=== PATIENT | male | born 2000 | race Caucasian/White ===

== ENCOUNTER → 2019-04-01 | Outpatient (CLI) | payer OTHER | END | disposition home or self-care (01) | LOC: LAB 10:00 → LAB SHORT 10:00 | DX: J02.9 Acute pharyngitis, unspecified (principal) | CPT/HCPCS: 87081 ==

== ENCOUNTER 2024-10-03 04:01 | Emergency (ER) | payer OTHER ==
[~2024-10-03] VITALS: Ht 180.3 cm; Wt 112.0 kg
[2024-10-03 04:14] VITALS: BP 132/88
== END 2024-10-03 05:55 | disposition home or self-care (01) ==
LOC: ER 04:01
DX: S00.83XA Contusion of other part of head, initial encounter (principal); Y04.8XXA Assault by other bodily force, initial encounter
CPT/HCPCS: 70450; 73130; 99284-25

== ENCOUNTER → 2025-01-17 | Outpatient (CLI) | payer OTHER ==
[2025-01-20 08:08] LABS: HIV 1,2 COMBO ANTIGEN/ANTIBODY Negative (Negative)
[2025-01-20 09:29] LABS: HEPATITIS C AB CIA INTERP Negative (Negative); HEPATITIS C ANTIBODY CIA INDEX <0.02 IV
[2025-01-21 19:58] LABS: APTIMA MEDIA TYPE Urine; C. TRACHOMATIS BY TMA Negative (Negative); N. GONORRHOEAE BY TMA Negative (Negative); T. VAGINALIS BY TMA Negative (Negative)
== END ==
LOC: LAB SHORT 17:10 → LAB 17:10
PROVIDERS: Student in an Organized Health Care Education/Training Program
DX: Z11.3 Encounter for screening for infections with a predominantly sexual mode of transmission (principal)
CPT/HCPCS: 86803; 87389; 87491; 87591; 87661

== ENCOUNTER → 2025-01-18 | Outpatient (CLI) | payer OTHER ==
[2025-01-18 19:08] LABS: Chlamydia Trachomatis Urine NOT DETECTED (NOT DETECT); Neisseria Gonorrhoea Urine NOT DETECTED (NOT DETECT)
== END ==
LOC: LAB 12:16 → LAB SHORT 12:16
PROVIDERS: Family Medicine
DX: N48.9 Disorder of penis, unspecified (principal)
CPT/HCPCS: 86592; 87491; 87591

== ENCOUNTER 2025-01-30 11:11 | Emergency (ER) | payer OTHER ==
[~2025-01-30] VITALS: Ht 182.9 cm; Wt 99.8 kg
[2025-01-30 11:34] VITALS: BP 149/94
[2025-01-30] MEDS ORDERED: QUET25 PO (11:47)
== END 2025-01-30 11:51 | disposition home or self-care (01) ==
LOC: ER 11:11
DX: G47.00 Insomnia, unspecified (principal)
CPT/HCPCS: 99282

== ENCOUNTER 2025-03-20 18:57 | Observation (INO) | payer OTHER ==
[~2025-03-20] VITALS: Ht 185.4 cm; Wt 101.6 kg
[~2025-03-20 18:57] MED LIST: QUET25 PO
[2025-03-20 19:53] LABS: BASOPHILS ABSOLUTE AUTO 0.06 K/mm3 (0.00-0.23); BASOPHILS PERCENT AUTO 0 % (0-2); EOSINOPHILS ABSOLUTE AUTO 0.18 K/mm3 (0.00-0.68); EOSINOPHILS PERCENT AUTO 1 % (0-6); Hematocrit 43.3 % (37.0-53.0); Hemoglobin 14.7 g/dL (13.5-17.5); IMMATURE GRAN ABSOLUTE AUTO 0.06 K/mm3 (0.00-0.10); IMMATURE GRAN PERCENT AUTO 0 % (0-1); LYMPHOCYTES ABSOLUTE AUTO 2.67 K/mm3 (0.84-5.20); LYMPHOCYTES PERCENT AUTO 19 % (21-46); MONOCYTES ABSOLUTE AUTO 1.06 K/mm3 (0.16-1.47); MONOCYTES PERCENT AUTO 8 % (4-13); Mean Corpuscular HGB Conc 33.9 g/dL (31.5-36.5); Mean Corpuscular Volume 86 fL (80-100); NEUTROPHILS ABSOLUTE AUTO 9.96 K/mm3 (1.96-9.15); NEUTROPHILS PERCENT AUTO 71 % (41-73); NRBC ABSOLUTE 0.00 K/mm3 (0.00-0.02); NRBC Auto 0.0 /100 WBC (0.0-0.2); Platelet Count 327 K/mm3 (150-400); RDW Coefficient Variation 12.8 % (11.7-14.2); RDW Standard Deviation 40.4 fL (35.1-46.3)
[2025-03-20 20:18] LABS: Ethanol (Alcohol), Blood, Med <3 mg/dL; Salicylate <1.7 mg/dL (2.8-20.0)
[2025-03-20 20:20] LABS: Alanine Aminotransfer (ALT/SGP 74 U/L (12-78); Albumin, Blood 3.7 g/dL (3.4-5.0); Albumin/Globulin Ratio 0.8 (0.8-1.8); Anion Gap 8 mmol/L (3-11); Aspartate Aminotrans (AST/SGOT 31 U/L (12-37); Bilirubin, Total 0.3 mg/dL (0.1-1.0); Blood Urea Nitrogen 22 mg/dL (8-24); CO2, Blood 27 mmol/L (21-32); Calcium, Blood 9.4 mg/dL (8.5-10.1); Chloride, Blood 104 mmol/L (98-108); Creatinine, Blood 0.80 mg/dL (0.60-1.20); Globulin, Blood 4.5 g/dL (2.2-4.0); Glucose, Blood 113 mg/dL (70-99); Potassium, Blood 3.9 mmol/L (3.5-5.5); Sodium, Blood 135 mmol/L (136-145); Total Protein, Blood 8.2 g/dL (6.4-8.2)
[2025-03-20 20:23] LABS: Acetaminophen, Random <2.0 ug/mL (10.0-30.0)
[2025-03-20 20:41] LABS: Source, Urine Clean Catch
[2025-03-20 20:44] LABS: Bilirubin, Urine Neg (Neg); Color, Urine Yellow (P-Yellow); Glucose Qualitative, Urine Neg (Neg); Ketones, Urine Neg (Neg); Leukocyte Esterase, Urine Neg (Neg); Protein, Urine Neg (Neg); Specific Gravity, Urine 1.015 (1.003-1.022); Urobilinogen, Urine NORM (Normal)
[2025-03-20 20:56] LABS: U Amphetamine Screen Not Detected; U Barbiturate Screen Not Detected; U Benzodiazapine Screen Not Detected; U Buprenorphine Screen Not Detected; U Cannabinoids Screen Not Detected; U Cocaine Screen Not Detected; U Methadone Screen Not Detected; U Methamphetamine Screen Not Detected; U Opiates Screen Not Detected; U Oxycodone Screen Not Detected; U Phencyclidine Screen Not Detected
[2025-03-21] MEDS ORDERED: DEXTROMETHORPHAN/BENZOCAINE 1 EACH LOZENGE MT ONE (04:45)
[2025-03-21 09:39] VITALS: BP 133/80
[2025-03-21] MEDS ORDERED: BUSPIRONE HCL5 M6 PO (09:44)
[2025-03-21] MEDS ORDERED: Hydroxyzine HCl25 MG PO (09:45)
[2025-03-21] MEDS ORDERED: SERT100 PO (20:30)
== END 2025-03-21 16:13 | disposition other institution (70) ==
LOC: ER 18:57 → EOR 18:58 → EDBEDREQSVC 03-21 10:55 → EDBEDREQ 03-21 10:55 → EOR 03-21 16:13
PROVIDERS: Student in an Organized Health Care Education/Training Program; ADMIT Emergency Medicine
DX: T14.91XA Suicide attempt, initial encounter (principal); X83.8XXA Intentional self-harm by other specified means, initial encounter; G47.00 Insomnia, unspecified; Z59.89 Other problems related to housing and economic circumstances
CPT/HCPCS: 36415; 80053; 80320; 81003; 85025; 99285; A9270; G0378; G0480

== ENCOUNTER 2025-03-21 10:39 | Inpatient (IN) | payer OTHER ==
[~2025-03-21] VITALS: Ht 185.4 cm; Wt 99.8 kg
[~2025-03-21 10:39] MED LIST changes: +BUSPIRONE HCL5 M6 PO; +Hydroxyzine HCl25 MG PO
[2025-03-21] MEDS ORDERED: Ondansetron 4 MG SoluTab MM PRN (12:20)
[2025-03-21] MEDS ORDERED: Polyethylene Glycol 3350 17 gm PO PRN (12:20)
[2025-03-21] MEDS ORDERED: Haloperidol Lactate Inj. 5 MG/ML Injection IM PRN (12:25)
[2025-03-21] MEDS ORDERED: LORazepam 2 MG/ML 1ML Injection IM PRN (12:25)
[2025-03-21] MEDS ORDERED: FLU VACC TS2025-26(6MOS UP)/PF 45 MCG/0.5 ML SYRINGE IM SCH (12:25)
[2025-03-21] MEDS ORDERED: Aluminum Hydroxide 320MG/5ML 473 ML PO PRN (12:30)
[2025-03-21] MEDS ORDERED: DiphenhydrAMINE HCl 50 MG/ML 1ML Vial IM PRN (12:30)
[2025-03-21 16:32] VITALS: BP 150/94
--- NOTE | 2025-03-21 17:50 | NUR ---
PT ARRIVED ON THE UNIT FROM [facility] ED @151. HE WAS ESCORTED BY EMILIE A AND SECURITY. TWO RN SKIN AND LICE CHECK COMPLETED BY THIS RN AND CHRIS Veras RN. NO ISSUES NOTED. PT ORIENTATED TO THE UNIT. INTAKE WILL BE COMPLETED BY NOC STAFF
[2025-03-21 20:04] VITALS: BP 150/94
[2025-03-21] MEDS ORDERED: SERT100 PO (20:30)
[2025-03-21 20:51] VITALS: BP 134/78
--- NOTE | 2025-03-21 21:15 | NUR ---
ADMISSION NOTE: PATIENT ARRIVED ON [facility] AT 1518, SKIN CHECK DONE BY DAY SHIFT RNS. ADMIT DONE ON THIS SHIFT. PATIENT IS A PLEASANT 24 YEAR OLD MALE WITH AN NAURUAN ACCENT, HE WAS BORN IN [place] AND RECENTLY MOVED HERE. HE STATES THAT HE IS "DEPRESSED" SECONDARY TO "CHRONIC INSOMNIA". HE USED TO SLEEP 7-8 HOURS A NIGHT, UNINTERRUPTED, HE STATES, BUT NOW HE SLEEPS "ABOUT TWO HOURS, THEN AWAKE, THEN MAYBE ANOTHER TWO". HE STATES THAT HE NEVER DREAMS AND IS SO EXHAUSTED "THAT I'M IN PAIN ALL THE TIME. THAT'S WHY I TRIED TO HANG MYSELF." HE STATES THAT WHEN HE TRIED TO HANG HIMSELF, "I MEANT TO . I WROTE A SUICIDE NOTE AND THOUGHT IT WAS THE END." HE STATES THAT HE STILL FEELS SUICIDAL BUT THAT HE FEELS "SAFE HERE AND I WON'T DO ANYTHING HERE". HE STATES THAT IF HE DOES NOT START TO GET SOME GOOD SLEEP, HE WILL TRY AGAIN ONCE HE LEAVES HERE "BECAUSE THE PAIN AND EXHAUSTION ARE TOO MUCH". PATIENT WOULD LIKE A FLU SHOT WHILE HE IS HERE. HE WOULD ALSO LIKE THYROID LABS DONE, HE FEELS HIS "HEART RACES" AND HE MIGHT BE HAVING ISSUES. HE STATES, "I'M TERRIFIED OF HAVING A STROKE. I FEEL LIKE THE RACING HEART MIGHT LEAD TO ONE." DR ORDERED THYROID PANEL FOR THE MORNING LABS. PATIENT STATES HE CAN BE SELF HARMING, AND DOES SO BY "HITTING MYSELF WITH CLOSED FISTS". HE STATES THAT HE SOMETIMES GETS ANGRY, "BUT I'VE NEVER HURT ANOTHER PERSON, JUST MYSELF". HE WILL TELL STAFF IF HE FEELS LIKE SELF HARMING WHILE HERE. HE HAD HIS APPENDIX REMOVED WHEN HE WAS YOUNGER, IN [place]. HE DOES NOT REMEMBER THE YEAR. HE IS CONNECTED WITH [employer] AND SEES "[facility]" ALTHOUGH HE MISSED A MARCH 11 APPOINTMENT. HIS PCP IS DR REHANA STOVALL. HE STATES THAT HE HAS GOOD FAMILY SUPPORT WITH HIS MOM AND STEPDAD. HE HAS A GOOD NETWORK OF FRIENDS, AND A SUPPORTIVE GIRLFRIEND. IN ONE YEAR, HE SEES HIMSELF "NOT ALIVE". HE STATES, "THAT COULD CHANGE IF THE PAIN AND EXHAUSTION STOP" BUT HE DOESN'T KNOW HOW THAT IS POSSIBLE. HE STATES THAT THE DEPRESSION/EXHAUSTION/PAIN HAVE BEEN SO SEVERE THAT HE HAS NOT ATTENDED TO BASIC NEEDS, SUCH "BRUSHING MY TEETH AND COMBING MY HAIR". WHEN HE IS UPSET HE WOULD LIKE STAFF TO "TRY DIFFERENT THINGS" AND HE STATES THAT "YELLING ALWAYS MAKES THINGS WORSE." HE WAS ORIENTED TO THE UNIT AND WAS ABLE TO CONNECT WITH HIS ROOMMATE. HE TOOK A ZYPREXA FOR A MASS SCORE OF 4 AND TYLENOL FOR A PAIN LEVEL OF 4/10 IN BILATERAL LEGS. HE THEN WENT TO HIS ROOM WHERE HE IS RESTING QUIETLY, BUT STILL AWAKE AT THIS TIME. CONTINUING TO MONITOR FOR SAFETY WITH Q15 MINUTE CHECKS.
--- NOTE | 2025-03-21 21:34 | NUR ---
MASS SCORE AT 210: PATIENT HAD MASS SCALE OF 4, WITH BUILDING ANXIETY RELATED TO CHRONIC INSOMNIA THAT CAUSES "PAIN". PATIENT WAS ALSO GIVEN TYLENOL FOR PAIN LEVEL 4/10 IN BILATERAL LEGS. CONTINUING TO MONITOR FOR EFFECTIVENESS AND SAFETY WITH Q15 MINUTE CHECKS.
--- NOTE | 2025-03-21 22:24 | NUR ---
FOLLOW UP TO MASS SCORE: UPON FOLLOW UP, PATIENT MASS SCORE DOWN TO 2. CONTINUING TO MONITOR FOR SAFETY AND EFFECTIVENESS WITH Q15 MINUTE CHECKS.
--- NOTE | 2025-03-22 00:07 | NUR ---
MID SHIFT SUMMARY: PLEASE SEE ADMISSION NOTE. PATIENT WAS GIVEN ZYPREXA FOR A MASS SCORE OF 4. HIS MASS SCORE WAS REDUCED TO 2 AFTER AN HOUR AND HE WAS ABLE TO REST. HE WAS NOTED TO BE ON HIS BED SNORING. TSH LAB PUT IN UPON DOCTOR TELEPHONE ORDER. HE WOULD LIKE A FLU SHOT, REQUEST WRITTEN ON WHITE BOARD. NO ISSUES OR CONCERNS NOTED. CONTINUING TO MONITOR FOR SAFETY WITH Q15 MINUTE CHECKS.
--- NOTE | 2025-03-22 01:37 | NUR ---
ASSUMPTION OF CARE ASSUMED CARE OF PATIENT FROM WILLIAM CURRY AT MIDNIGHT. HE IS CURRENTLY RESTING QUIETLY IN HIS BED. NO SIGNS OF ACUTE DISTRESS NOTED. HE RECEIVED TO FOLLOWING PRN MEDICATIONS PRIOR IN THE SHIFT: TYLENOL 650 FOR LEG PAIN AT 2105 AND ZYPREXA ZYDIS 10MG FOR ANXIETY AT 2103.
--- NOTE | 2025-03-22 04:33 | NUR ---
END OF SHIFT SUMMARY PATIENT HAS HAD NO ACUTE CHANGES NOTED SINCE ADMISSION. NO SIGNS OF DISTRESS NOTED. NO PRN MEDICATIONS WERE UTILIZED. CONTINUES TO BE MONITORED EVERY 15 MINUTES FOR WELLNESS AND SAFETY.
--- NOTE | 2025-03-22 04:33 | NUR ---
END OF SHIFT SUMMARY PATIENT HAS SLEPT SINCE THIS JANITORIAL ACCOUNT MANAGER ASSUMED CARE AT MIDNIGHT. NO PRN MEDICATIONS WERE UTILIZED. PATIENT DOES NOT SEEM TO BE IN ANY ACUTE DISTRESS.
[2025-03-22] MEDS ORDERED: Multivitamins 1 Tab PO SCH (09:00)
[2025-03-22 09:02] VITALS: BP 145/92
[2025-03-22 09:09] LABS: CHOL/HDL RATIO 3.2; Cholesterol 141 mg/dL (50-200); HDL Cholesterol 44 mg/dL (>39); LDL/HDL RATIO 1.8; Low Density Lipoprotein Chol 80 mg/dL (0-110); Thyroid Stimulating Hormone 1.890 uIU/mL (0.360-4.800); Triglycerides 86 mg/dL (30-140); Very Low Density Lipoprot Chol 17 mg/dL (6-28)
[2025-03-22] MEDS ORDERED: GuaiFENesin 100 MG/5 ML 5ML UDC PO PRN (13:15)
--- NOTE | 2025-03-22 17:20 | NUR ---
SHIFT SUMMARY: PT IS ALERT AND ORIENTED. COOPERATIVE WITH CARE AND COMPLIANT WITH MEDICATIONS. HE APPEARS WELL GROOMED AND HAS APPROPRIATE EYE CONTACT. STATES THAT HE SLEPT SOME LAST NIGHT AND IS FEELING "OK" TODAY. WHEN ASKED ABOUT SI, HE STATES THAT HE HAD A THOUGHT OF JUMPING THROUGH THE WINDOW IN HIS ROOM BUT HAS NO INTENTION OF ACTING ON THE THOUGHT. HE ALSO STATES THAT HE REALIZES THE WINDOW WON'T BREAK. PT DENIES HAVING A PLAN OR INTENT FOR SELFHARM. HE HAS A DEPRESSED AFFECT BUT IS ENGAGED IN CONVERSATIONS. PT HAD A VISIT WITH HIS MOTHER WHICH APPEARED TO GO WELL. C/O COUGH, ORDER WAS OBTAINED AND PLACED FOR COUGH SYRUP. PT WAS PRESENT FOR MEALS AND PART OF GROUPS. HE SPENT TIME WATCHING TV IN THE DAY ROOM, TALKING WITH PEERS AND RESTING ON HIS BED. PT MONITORED W[facility] Q 15 MIN CHECKS FOR SAFETY PER UNIT PROTOCOL.
[2025-03-22 21:14] VITALS: BP 129/62
--- NOTE | 2025-03-23 04:59 | NUR ---
SHIFT SUMMARY 24 YEAR-OLD MALE PRESENTS WELL GROOMED. HE IS ALERT AND ORIENTED. HE SPEAKS IN A CLEAR VOICE AND IN AN APPROPRIATE VOLUME. HE IS ABLE TO MAKE AND KEEP EYE CONTACT DURING CONVERSATIONS. AT THE TIME OF HIS ASSESSMENT, HE DESCRIBED HIS MOOD SAD AND DEPRESSED. HE ALSO DENIED HI AND AVTH AT THAT TIME. HE DID ENDORSE SI WITHOUT A PLAN. HE ALSO STATED THAT HE HAS ASKED HIS ROOMMATE YESTERDAY IF THEY WOULD HELP HIM THINK OF WAYS HE COULD COMMIT SUICIDE. HE ALSO ENQUIRED ABOUT MEDICATIONS THAT ARE USED IN THE [place] ASSISTED SUICIDE PROTOCOL AND HOW HE COULD GET A PROVIDER TO PRESCRIBE THEM. EDUCATION WAS GIVEN ABOUT THE REQUIREMENTS FOR ASSISTED SUICIDE AND WHAT TO EXPECT FROM HIS TIME HERE AT THE [facility]. HE WAS EDUCATED THAT HE WILL NEED TO BE FULLY ENGAGED IN PROGRAMMING AND EXPECT TO CONTINUE WITH A THERAPIST AFTER DISCHARGING TO LEARN HALF-WAY COPING SKILLS FOR THE STRESSORS IN HIS LIFE. HE ATTENDED SNACK AND DAY ROOM. HE WAS COMPLIANT WITH CARE AND MEDICATION ADMINISTRATION. HE RECEIVED THE FOLLOWING PRN MEDICATIONS: TRAZADONE 50MG FOR SLEEP AT 2028, TYLENOL 650MG FOR 7/10 LEG AND EPIGASTRIC PAIN, & ROBITUSSIN SYRUP FOR COUGH AT 2128. HE CONTINUES TO BE MONITORED EVERY 15 MINUTES FOR WELLNESS AND SAFETY.
--- NOTE | 2025-03-23 04:59 | NUR ---
PRN NOTE PATIENT RECEIVED THE FOLLOWING PRN MEDICATIONS DURING CREDENTIALING COORDINATOR: TRAZADONE 50MG FOR SLEEP AT 2028, TYLENOL 650MG FOR 7/10 LEG AND EPIGASTRIC PAIN, & ROBITUSSIN SYRUP FOR COUGH AT 2128.
[2025-03-23 08:52] VITALS: BP 148/92
--- NOTE | 2025-03-23 16:45 | NUR ---
SHIFT SUMMARY PT A/O X4 AND COOPERATIVE WITH CARE. HE DENIES SI AND HI THIS MORNING WHEN ASKED, BUT SAID THAT HE DID HAVE SI YESTERDAY. PT STATES HE WAS UNSURE IF THE SUICIDAL THOUGHTS WOULD RETURN TODAY BECAUSE THEY ARE GREATLY IMPACTED BY HIS ABILITY TO SLEEP. PT STATED THAT HE DID NOT SLEEP WELL LAST NIGHT AND IS FEELING "TONY SAD". HE DENIES ANY HALLUCINATIONS. PT REPORTS SOME LEG PAIN AND EPIGASTRIC PAIN. PT DENIES ANY INJURY TO HIS LEGS AND SAYS THAT THEY HURT FROM BEING SEDENTARY. HE ALSO DENIES ANY NAUSEA/VOMITTING WITH THE EPIGASTRIC PAIN AND HIS APPETITE IS GOOD. HE DENIES ANY CONSTIPATION/DIARRHEA. ABD AUSCULTATED AND BT PRESENT IN ALL 4 QUADRANTS. ABD IS SOFT AND NON-TENDER TO PALPATION. PT'S AFFECT IS DEPRESSED AND HE ATTENDED GROUPS WITH ENCOURAGEMENT.
--- NOTE | 2025-03-23 18:26 | NUR ---
SELF HARM THIS RN NOTICED NEW RED BERGER ON BILATERAL PT WRISTS. PT ADMITTED TO USING HIS FINGERNAILS AND THE SIDES OF PLAYING CARDS/PAPER TO MAKE BERGER/CUTS ON HIS WRISTS. PT BELIEVES THAT HE IS "DYING ANYWAYS" AND IS HOPING TO CUT HIMSELF BUT DOING THIS. ENCOURAGED PT TO ALERT STAFF WHEN HE WANTED TO SELF HARM AND EXPLAINED SITTER PROCESS TO PT.
[2025-03-23 19:18] VITALS: BP 149/76
--- NOTE | 2025-03-24 04:35 | NUR ---
SHIFT SUMMARY PT IS A&OX4. AT START OF SHIFT PT IS TEARFUL, STATES HE HAD A CONVERSATION WITH HIS MOM AND THEY WERE BOTH CRYING. STATES HE FEELS BAD THAT HE UPSET HER. PT ADMITS TO SI, WITH NO CURRENT PLAN OR INTENT. DENIES HI OR AVTH. PT NOTED TO HAVE RED BERGER ON BILATERAL WRIST AREAS, SKIN IS NOT BROKEN. STATES HE USED HIS NAILS TO SCRATCH HIMSELF. REMOVED ARTWORK THAT WAS THICK PAPER FROM PT'S BED ALONG WITH EXTRA ROBE FOUND IN BED. PT VERBALLY CONTRACTED FOR SAFETY. PT COMPLIANT WITH MEDS. HE DECLINED SNACK AND WRAP UP GROUP. HE REQUESTED AND RECEIVED PRN TRAZODONE TO ASSIST WITH SLEEPING. PT APPEARED TO SLEEP WELL, WAS SNORING. HE AWOKE AROUND 0430 AND IS LAYING IN BED RESTING AT THIS TIME. Q15 MINUTE CHECKS TO CONTINUE PER PT SAFETY AND WELLNESS.
[2025-03-24 08:52] VITALS: BP 152/91
--- NOTE | 2025-03-24 11:06 | NUR ---
TRANSFER OF CARE PT DENIES SI, HI, AVTH; STATES, "I DID HAVE IT YESTERDAY (REFERRING TO SI)". PT HAS DEPRESSED/BLUNTED AFFECT, SLOW SPEECH, BUT ATTENDED GROUPS AND MEALS. WROTE FEELING ANXIOUS ON COMMUNITY WORKSHEET AND ASKED PT IF HE WOULD LIKE A PRN TO HELP CALM DOWN, HYDROXYZINE GIVEN PER EMAR.
--- NOTE | 2025-03-24 12:40 | NUR ---
ASSSUMED CARE OF PT: PT WAS PUT ON A 1:1 STATUS FOR SAFETY, PT REPORTED FEELING OF SI WITH INTENSITY OF 8/10w. PT ENDORSED SAFETY ON BHU AT THIS TIME. PT DENIED HI AND AVH. PT HAS BEEN IN GROUPS AND AMONGST THE PT MILIEU. HE HAS BEEN PLEASANT AND COOPERATIVE WITH CARE.
--- NOTE | 2025-03-24 14:33 | NUR ---
sheltered workshop worker Adrien stated that this patient had told her that he tied a knot in his curtain, while thinking about dying. This nurse and the professor of social work went to talk with the patient. He states "I don't want to , I just feel like I am so I want to find a way to make it quick and painless". He reports "I tied a knot in the curtain, but it would not work anyways because I am to tall". He reports that he feels like something is wrong with him (physically) and he feels like he is dying. Labs do not indicate any pathology at this time. Patient denies having any medical diagnosis that would put him at risk of dying. We talked about how mental heatlh symptoms can make you feel like you are ill, or dying. and encouraged the patient to talk to the provider about his feelings so that medications might be adjusted. The provider then joined us. Provider spoke with the patient about his symptoms, medications and plans. Provider is going to adjust medications, place patient on close observation for now and speak with him again tomorrow. Nursing and MHA's will closely monitor the patient for safety. sheltered workshop worker Adrien stated that this patient had told her that he tied a knot in his curtain, while thinking about dying. This nurse and the professor of social work went to talk with the patient. He states "I don't want to , I just feel like I am so I want to find a way to make it quick and painless". He reports "I tied a knot in the curtain, but it would not work anyways because I am to tall". He reports that he feels like something is wrong with him (physically) and he feels like he is dying. Labs do not indicate any pathology at this time. Patient denies having any medical diagnosis that would put him at risk of dying. We talked about how mental heatlh symptoms can make you feel like you are ill, or dying. and encouraged the patient to talk to the provider about his feelings so that medications might be adjusted. The provider then joined us. Provider spoke with the patient about his symptoms, medications and plans. Provider is going to adjust medications, place patient on close observation for now and speak with him again tomorrow. Nursing and MHA's will closely monitor the patient for safety. sheltered workshop worker Adrien stated that this patient had told her that he tied a knot in his curtain, while thinking about dying. This nurse and the professor of social work went to talk with the patient. He states "I don't want to , I just feel like I am so I want to find a way to make it quick and painless". He reports "I tied a knot in the curtain, but it would not work anyways because I am to tall". He reports that he feels like something is wrong with him (physically) and he feels like he is dying. Labs do not indicate any pathology at this time. Patient denies having any medical diagnosis that would put him at risk of dying. We talked about how mental heatlh symptoms can make you feel like you are ill, or dying. and encouraged the patient to talk to the provider about his feelings so that medications might be adjusted. The provider then joined us. Provider spoke with the patient about his symptoms, medications and plans. Provider is going to adjust medications, place patient on close observation for now and speak with him again tomorrow. Nursing and MHA's will closely monitor the patient for safety.
--- NOTE | 2025-03-24 14:40 | NUR ---
THE CURTAINS WERE REMOVED FROM THE PT'S WINDOWS FOR SAFETY.
--- NOTE | 2025-03-24 16:24 | NUR ---
NURSE NOTE PT DENIES SI TO MELINA ORNELAS AND TO MELINA RIGGS. HE DENIES SI TO THIS RN AND HE AGREES TO BE SAFE AND INFORM ANY STAFF MEMBER SHOULD HE START HAVING SI AGAIN. DR. NOBLES INFORMED AND V/O OBTAINED AND NOTED TO DECREASE PT FROM 1:1 CLOSE OBSERVATION TO Q15 MIN SAFETY CHECKS.
--- NOTE | 2025-03-24 17:55 | NUR ---
PT HAD A VISIT WITH HIS PARENTS WHICH SEEMED TO GO WELL. HE IS PRESENTLY IN THE DINNING ROOM FOR DINNER. PT HAS BEEN VERY COOPERATIVE THIS AFTERNOON.
[2025-03-24 20:18] VITALS: BP 142/88
--- NOTE | 2025-03-25 04:27 | NUR ---
SHIFT SUMMARY PATIENT AWAKE IN HIS ROOM REQUESTING HIS HS MEDICATIONS AND TRAZODONE FOR SLEEP. PATIENT VERBALIZED THAT WHEN HE SPOKE TO THE DOCTOR TODAY THAT THE TRAZODONE ORDER WAS INCREASED TO 150MG, WHEN CHECKING TODAY'S ORDERS IT WAS THE AM ZOLOFT THAT WAS INCREASED TO 150MG. EXPLAINED TO PATIENT THE CURRENT MEDICATION ORDERS. PATIENT CONTINUES TO HAVE SI, VERBALIZED THAT HE IS DYING ANYWAY WITHIN THE YEAR FROM A STROKE OR A HEART ATTACK, DENIES CHEST PAIN OR SIGNS OF CVA. WHEN ASKED WHY HE FELT THAT HE WAS GOING TO HAVE A HEART ATTACK OR STROKE HE SAID "MY BODY IS WEAK" "I CAN JUST TELL". PATIENT ACKNOWLEDGES THAT DOCTORS HAVE CHECKED AND INFORMED HIM THAT HIS LABS AND ASSESSMENTS ALL SHOW THAT HE IS HEALTHY. DENIES HI, OR AVTH. PATIENT GIVEN HYDROXYZINE FOR MASS 4. AFTER SNACK TRAZODONE GIVEN WITH HS MEDICATIONS. PATIENT CONTINUED TO BE AWAKE AT 2054 2ND TRAZODONE GIVEN. AT 2114 PATIENT CHANGED TO [id number] DUE TO C/O LIGHT FROM THE WINDOW. AT 2219 PATIENT CONTINUES TO BE AWAKE AND YELLING OUT TO THE BERUMEN AT THE NURSING STAFF COMPLAINING OF NOT BEING ABLE TO SLEEP ZYPREXA GIVEN FOR MASS 7. 2300 PATIENT SLEEPING RESP EVEN WITH OCCASIONAL SNORING. CONTINUE TO MONITOR Q15MIN
[2025-03-25 09:15] VITALS: BP 157/94
--- NOTE | 2025-03-25 17:48 | NUR ---
SHIFT SUMMARY: PT IS ALERT, ORIENTED AND COOPERATIVE WITH CARE. HE BECCA SI AND AVH. STATES THAT THE HAD A THOUGHT OF GOING INTO ANOTHER PATIENTS ROOM AND USING THEIR CURTAIN IN ORDER TO HARM HIMSELF. STATES, "I JUST HAD THE THOUGHT BUT I DON'T WANT TO DO IT AND DON'T HAVE A PLAN TO DO IT". PT DENIES INTENT AND STATES THAT HE IS ABLE TO CONTROL THE THOUGHTS. HE APPEARS WELL GROOMED AND HAS APPROPRIATE EYE CONTACT. PT VERBALIZED FRUSTRATION R/T VISITATION WITH HIS MOM AND HIS GIRLFRIEND. DISCUSSED WITH PATIENT THAT VISITATIONS ARE UP TO HIM AND HE IS ABLE TO CHOOSE IF HE WOULD LIKE TO HAVE THEM OR NOT. ENCOURAGED PT TO PUT HIS MENTAL HEALTH AND SELF AT THE FOREFRONT OF HIS DECISIONS. PT AGREEABLE TO TAKING A DAY BY DAY APPROACH TO WHO IS SCHEDULED FOR VISITS. PT DISCUSSED CONCERNS THAT HE HIS BODY IS DYING. WE DISCUSSED THE PHYSICAL SIGNS AND SYMPTOMS OF A DYING BODY AND PT VERBALIZED RELIEF THAT HE IS NOT SHOWING ANY OF THESE SIGNS CURRENTLY. PT REQUESTED TO USE THE PHONE, MADE A CALL AND ASKED TO HAVE HIS GIRLFRIEND PUT ON THE VISITOR LIST FOR 03/27/25. PT MOTHER CAME TO VISIT IN THE AFTERNOON AND VERBALIZED FRUSTRATION R/T HIS GIRLFRIEND VISITING. STATES THAT THEY SCHEDULED VISITS EVERYDAY SO THAT SHE WAS NOT ABLE TO VISIT. DISCUSSED CONCERN R/T RELATIONSHIP AND GIRLFRIENDS LACK OF RESPONSE DURING PT INITIAL SUICIDAL SITUATION AT HOME. THIS RN VERBALIZED UNDERSTANDING AND EMPATHY OF THEIR SITUATION. EXPLAINED TO HER THAT PT IS AN ADULT AND THAT HE IS ULTIMATELY IN CHARGE OF WHO HE SEES DURING HIS VISITATIONS. SHE VERBALIZED HER FRUSTRATION WITH THE SITUATION BUT CALMLY LEFT. PT ATTENDED MEALS AND GROUPS. HE SPENT MUCH OF THE DAY RESTING IN HIS ROOM BUT WAS ALSO ACTIVE IN THE MILIEU TALKING WITH PEERS.
[2025-03-25 19:24] VITALS: BP 155/81
--- NOTE | 2025-03-26 04:17 | NUR ---
SHIFT SUMMARY PATIENT RESTING QUIETLY IN BED. DENIES SI, HI OR AVTH AT THIS TIME. VERBALIZED THAT HE CONTINUES TO FEEL IF HE IS DYING FROM AN UNSEEN ILLNESS. "I HURT EVERYWHERE" UNABLE TO DESCRIBE PAIN OR EXPLAIN WHERE HE IS HAVING PAIN. "NOBODY UNDERSTANDS" TYLENOL GIVEN AT 1933 THEN IBUPROFEN GIVEN AT 0300. VERBALIZED SI THOUGHTS COME AND GO AT TIMES BECAUSE OF THIS FEELING. DENIES PLAN TO HARM SELF. PATIENT ASKING XAVIER SUMMERS SEVERAL TIMES BEFORE AND DURING SNACK FOR EXAMPLES OF DIFFERENT WAYS TO KILL YOURSELF, DESPITE BEING TOLD SEVERAL TIMES THAT SHE I NOT GOING TO DISCUSS THAT WITH HIM. DOOR TO ROOM REMAINS OPEN AND CURTAINS ARE NOT HANGING IN ROOM, PATIENT KEEPS ASKING WHEN HE CAN HAVE THE DOOR CLOSED, PATIENT REMINDED THAT WE ARE DOING THIS TO KEEP HIM SAFE AND WHEN THE INTRUSIVE THOUGHTS OF KILLING HIMSELF STOP, THEN HE CAN GET MORE PRIVACY. WE WILL CONTINUE CLOSE MONITORING AND FREQUENT ROOM MITIGATION. PATIENT COOPERATIVE WITH HS MEDICATIONS. FALLING TO SLEEP AT 2100 WITH EVEN RESP AND SNORING. AWAKENS AT 0300 REQUESTING MORE TRAZODONE, "I NEED SLEEP, THAT IS THE ONLY WAY I'LL FEEL BETTER" MELATONIN AND IBUPROFEN GIVEN. PATIENT NOW BACK TO SLEEP RESP EVEN WITH SNORING. CONTINUE TO MONITOR Q15MIN.
[2025-03-26 08:48] VITALS: BP 150/86
--- NOTE | 2025-03-26 17:36 | NUR ---
PT IS ALERT, ORIENTED AND COOPERATIVE WITH CARE. HE IS COMPLIANT WITH MEDICATED AND ENGAGED WITH STAFF. HE APPEARS WELL GROOMED, HAS A FLAT, DEPRESSED AFFECT AND APPROPRIATE EYE CONTACT. HE DENIES SI, HI AND AVH. HE STATES THAT HIS MOOD IS "HOPEFUL BUT SAD". PT ATTENED GROUPS AND MEALS. HE SPENT TIME IN THE DAY ROOM WATCHING TV AND IN HIS ROOM READING. PT FATHER WAS SIGNED UP FOR A VISIT TODAY, HIS MOTHER ARRIVED INSTEAD. STATED THAT HIS FATHER WAS IN THE CAR AND PLANS TO VISIT TOMORROW. CONVERSATION WAS HAD WITH MOTHER AND FATHER REGARDING VISITATION ON 03/27 PT HAS REQUESTED TO HAVE HIS GIRLFRIEND VISIT INSTEAD OF HIS PARENTS. MOTHER WAS REMINDED OF THIS AND SHE STATED, "I PLAN TO TALK TO HIM ABOUT THAT". THE VISIT APPEARED TO GO WELL, PT CAME OUT OF THE ROOM SMILING AND WENT INTO DINNER. PT MONITORED WITH Q 15 MIN CHECKS FOR SAFETY PER UNIT PROTOCOL.
[2025-03-26 20:50] VITALS: BP 138/84
--- NOTE | 2025-03-27 05:05 | NUR ---
SHIFT SUMMARY 24 YEAR-OLD MALE PRESENTS WELL GROOMED. HE IS ALERT AND ORIENTED. HE SPEAKS IN A CLEAR VOICE AND IN AN APPROPRIATE VOLUME. HE IS ABLE TO MAKE AND KEEP EYE CONTACT DURING CONVERSATIONS. AT THE TIME OF HIS ASSESSMENT, HE DESCRIBED HIS MOOD A LITTLE SAD. INITIALLY, HE DENIED SI, HI, AND AVTH. DURING OUR CONVERSATIONS, HE ADMITTED TO HAVING PASSIVE INTRUSIVE THOUGHTS/SI. HE DENIED HAVING ANY PLAN AT THAT TIME. HE ATTENDED SNACK AND DAY ROOM. HE WAS COMPLIANT WITH CARE AND MEDICATION ADMINISTRATION. HE RECEIVED THE FOLLOWING PRN MEDICATIONS: IBUPROFEN 600MG FOR 5/10 BILAT KNEE PAIN AT 9 & TYLENOL 650MG FOR 6/10 BILAT LEG PAIN AT 2100. HE CONTINUES TO BE MONITORED EVERY 15 MINUTES FOR WELLNESS AND SAFETY.
--- NOTE | 2025-03-27 05:06 | NUR ---
PRN NOTE PATIENT RECEIVED THE FOLLOWING PRN MEDICATIONS DURING TRANSITIONAL CARE MANAGER: IBUPROFEN 600MG FOR 5/10 BILAT KNEE PAIN AT 1948 & TYLENOL 650MG FOR 6/10 BILAT LEG PAIN AT 2100
[2025-03-27 08:57] VITALS: BP 157/80
--- NOTE | 2025-03-27 12:39 | NUR ---
SHIFT ASSESSMENT: PT ENDORSED SI, "FLEETING THOUGHTS. HE DENIED HI AND AVH. HE REPORTED, "I HAVE A LITTLE ANXIETY AND PAIN IN MY LEGS 4/10w." PT WAS GIVEN TYLENOL 650MG AT 0859. WHICH HE LATER REPORTED EFFECTIVE. PT DESCRIBED HIS MOOD , "SAD" BUT SMILING HE SAID IT. HIS GOALS ARE TO DRINK MORE FLUIDS AND BE MORE SOCIAL TODAY. PT WAS GIVEN HYDROXYZINE 50MG FOR ANXIETY FOR A MASS OF 4.
--- NOTE | 2025-03-27 17:57 | NUR ---
PT ENDORSED, "I FEEL LIKE I HAVE A SHORT TIME LEFT...CAN YOU TELL ME HOW LONG YOU THINK I HAVE TO LIVE?" THIS RN TOLD HIM THAT THERE WAS NO WAY TO TELL BUT ALL OF HIS LABS AND EXAMS ARE OF A HEALTHY YOUNG MAN. HE WAS URGED TO HAVE HIS SLEEP STUDY DONE AND SEE WHAT THAT REVEALS. CAR FILLER LEFT A PAPER FOR HIM TO TRACK HIS SYMPTOMS, IT WAS EXPLAINED AND GIVEN TO HIM. HE REPORTED UNDERSTANDING.
[2025-03-27 19:27] VITALS: BP 145/89
--- NOTE | 2025-03-28 06:13 | NUR ---
SHIFT SUMMARY Pt is A&O, calm, cooperative, polite, appropriately dressed, eye contact is appropriate. Pt stated that his mood is "really sad," however, he presents with a euthymic affect and smiled throughout the interview. Pt denies SI, HI, and hallucinations, but did state that he experienced some SI thoughts earlier in the day. Pt asked that he receive his HS medications as early as possible. Pt endorsed bilateral leg pain 6/10w and requested PRN APAP, which he received at 1931 and was effective. Pt was active on the unit, playing video games in the activity room with a peer. He asked for his meds at 1999 and retired to his room right afterwards. Pt refused snack. Pt was up at about 0045 asking for another sleep aide. RN explained that his trazodone is scheduled and he took that at 1999. RN offered PRN hydroxyzine to help with anxiety, but pt refused. Per observation sheet, pt slept 5.5 hours through 0600 and was noted snoring on about half of the rounds. Staff continues to monitor q15m for safety and wellness.
[2025-03-28 09:03] VITALS: BP 151/87
--- NOTE | 2025-03-28 16:58 | NUR ---
SHIFT SUMMARY NO ACUTE EVENTS TODAY. ENDORSES SI, BUT NO INTENT/PLAN AND STATES D/T POOR SLEEP. EDUCATED PT ON SLEEP APNEA PER REQUEST AND PT STATES "THAT'S REASSURING" AND STATED HOW HE WANTS TO DO A SLEEP STUDY POST DISCHARGE. PT INTERACTING W/ PEERS AND PLAYING VIDEO GAMES W/ EMMETT ON THE UNIT. ATE MEALS.
[2025-03-28 19:28] VITALS: BP 147/87
--- NOTE | 2025-03-29 06:17 | NUR ---
SHIFT SUMMARY Pt is A&O, calm, cooperative, polite, appropriately dressed, eye contact is appropriate. Pt stated that his mood is better and he is "trying to hang in there," affect is constricted. Pt denies SI, HI, and hallucinations. Pt reported generalized body pain 5/10w and was given PRN ibuprofen at 1942, which brought the pain down to 1 to 2. Pt discussed his sleep issues with this RN. He stated that he has a referral for a sleep study and he wants to call on Sunday to make an appointment. He is hopeful that his sleep issues can be relieved with proper treatment. This RN explained what a CPAP does and how it affect sleep, restfulness, and overall health. Pt requested PRN guaifenesin for cough at 1942 and hydroxyzine for anxiety at 2021; MASS 3. At about 0 pt approached the nurse station and requested PRN melatonin for sleep and APAP for pain 4 in knees. Staff continues to monitor q15m for safety and wellness.
[2025-03-29 09:03] VITALS: BP 154/82
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
[2025-03-29 19:10] VITALS: BP 154/82
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
[2025-03-30 08:50] VITALS: BP 160/93
[2025-03-30 15:15] VITALS: BP 133/84
--- NOTE | 2025-03-30 18:11 | NUR ---
SHIFT SUMMARY PT AxOx4. PT DENIED SI/HI AND AVTH THIS SHIFT. HE HAS BEEN FOLLOWING HIS TREATMENT PROGRAM INCLUDING TAKING MEDICATIONS PRESCRIBED, ATTENDING ALL [facility] THERAPY GROUPS AND MINGLING APPROPRIATELY WITH PEERS/STAFF. PT HAD HOSPITALIST CONSULT TODAY FOR ELEVATED BP. HOSPITALIST ORDERED BP MEDS FOR PATIENT TO BEGIN THIS EVENING. BP SHOWED IMPROVEMENT LATER ON THIS SHIFT. PT ALSO HAD VISIT FROM HIS MOTHER AND FRIEND. PT'S DISCHARGE PLAN IS FOR EXPECTED DC HOME TOMORROW. PT IS AWARE AND AGREEABLE TO THIS PLAN. MOM VOLUNTEERED TO PICK HIM UP AROUND 12 TOMORROW. PT'S CURRENTLY SITTING IN THE SENSORY ROOM, SPEAKING ON THE PHONE. PT APPEARS CALM AND RELAXED AT THIS TIME.
[2025-03-30 19:14] VITALS: BP 150/86
[2025-03-30 20:18] VITALS: BP 132/82
--- NOTE | 2025-03-31 05:16 | NUR ---
SHIFT SUMMARY Pt is A&O, calm, cooperative, polite, appropriately dressed, eye contact is appropriate. Pt stated that his mood is "pretty good," affect is congruent. Pt denies SI, HI, and hallucinations. Pt reported bilateral leg pain 5/10w. Pt stated that he is looking forward to going home tomorrow. Pt s BP has been elevated. Hospitalist ordered carvedilol 3.125mg bid and he received his first dose at 1944. This RN educated pt on carvedilol and advised that until he knows how he reacts to this med, he should stand up slowly and be alert for dizziness. Pt was active on the milieu this evening, spending time in the group room watching TV and reading. Pt requested PRN melatonin for sleep at about 2100. Staff continues to monitor q15m for safety and wellness
--- NOTE | 2025-03-31 08:05 | NUR ---
IMPORTANT DISCHARGE INFORMATION PATIENT TO BE DISCHARGED TODAY. HIS MOTHER HUSSAIN WILL BE PICKING HIM UP AROUND 1:3O. HER PHONE NUMBER IS . ALL PARTIES VERBALIZE AN UNDERSTANDING. FOLLOW UP WITH NEW PROVIDERS AT [facility] 3:30PM. SHELLEY LOPEZ FOR MEDICATION MANAGEMENT ON 04/21/25 AT 10:30AM. PHARMACY: [facility] .
[2025-03-31 08:57] VITALS: BP 133/86
[2025-03-31] MEDS ORDERED: SERT100 PO (10:42)
[2025-03-31] MEDS ORDERED: MELA3 PO (10:43)
[2025-03-31] MEDS ORDERED: AMANTADINE100 M6 PO (10:43)
[2025-03-31] MEDS ORDERED: Trazodone HCl300 MG PO (10:44)
[2025-03-31] MEDS ORDERED: OLAN10 PO (10:44)
--- NOTE | 2025-03-31 11:59 | NUR ---
DISCHARGE PT A/O X4; PLEASANT AND COOPERATIVE WITH CARE. HE DENIES SI, HI, AVTH. BELONGINGS RETURNED TO PT AND DC INSTRUCTIONS GONE OVER WITH PT AND HIS MOTHER. MEDICATIONS FAXED TO [facility] PER PT'S REQUEST. PT AND HIS MOTHER VOCALIZED UNDERSTANDING. PT LEFT UNIT AT 1142.
== END 2025-03-31 11:42 | disposition home or self-care (01) | DRG 885 ==
LOC: BHU 10:39
PROVIDERS: ADMIT Psychiatry & Neurology Psychiatry
DX: F33.2 Major depressive disorder, recurrent severe without psychotic features (principal); R45.851 Suicidal ideations; I10 Essential (primary) hypertension; G47.00 Insomnia, unspecified; F10.90 Alcohol use, unspecified, uncomplicated; F12.20 Cannabis dependence, uncomplicated; Z79.899 Other long term (current) drug therapy; Z23 Encounter for immunization; Z79.1 Long term (current) use of non-steroidal anti-inflammatories (NSAID)
CPT/HCPCS: 36415; 80061; 83036; 84443; 96372; A9270; G0008